=== PATIENT | male | born 1980 | race Caucasian/White ===

== ENCOUNTER 2017-03-02 05:58 | Day surgery (SDC) | payer BC ==
[2017-03-02] MEDS ORDERED: Lactated Ringers 1,000 ML IV SCH (06:30)
[2017-03-02] MEDS ORDERED: DIPRIVAN 200 MG/20 ML IV ONE (08:00)
[2017-03-02] MEDS ORDERED: Ketamine HCl 50 MG/ML IV ONE (08:00)
--- NOTE | 2017-03-02 08:35 | OP ---
SURGERY DATE/TIME: 03/02/2017 0740 PREOPERATIVE DIAGNOSIS: Epigastric abdominal pain. POSTOPERATIVE DIAGNOSIS: Moderate gastritis. PROCEDURE: EGD. SURGEON: Larry Ching M.D. ANESTHESIA: MAC by Piero Renteria CRNA. ESTIMATED BLOOD LOSS: Minimal. SPECIMENS: Cold forceps biopsy of the gastric antrum x2. DESCRIPTION OF PROCEDURE: After informed written consent was obtained, the patient was taken to the endoscopy suite. He underwent monitored anesthesia and a bite block was inserted. The endoscopic was inserted in the posterior oropharynx and under direct visualization the esophagus was traversed. The esophageal mucosa had a normal appearance free of any lesions or defects. There were no obvious signs of stricture or other abnormalities. The gastroesophageal junction likewise had a normal mucosal appearance free of any lesion or defects. Upon entering the stomach there was a normal rugated gastric mucosa free of lesions or defects. The area of the gastric antrum was inspected and noticed to have moderate gastritis-type changes with no focal ulcerations or active bleeding. Pylorus was traversed and the first and second portions of the duodenum were within normal limits. Two cold forceps biopsies were taken from the gastric antrum and sent for Helicobacter pylori testing. The remainder of the exam was within normal limits upon withdrawal. The scope was removed and the patient was transferred to the recovery room in excellent condition. I have advised him to avoid all NSAID's at this time and will start him on omeprazole 40 mg daily. Will treat for Helicobacter pylori eradication if it is present on pathology results.
[2017-03-02 09:12] VITALS: O2SAT 96
[2017-03-02 09:17] VITALS: BP 146/98; PULSE 79
== END 2017-03-02 09:00 | disposition home or self-care (01) ==
LOC: SDC 05:58
PROVIDERS: ATTEND Family Medicine
PROC: 0DB68ZX Excision of Stomach, Via Natural or Artificial Opening Endoscopic, Diagnostic (ICD-10-PCS; principal; 2017-03-02)
DX: K29.70 Gastritis, unspecified, without bleeding (principal)
CPT/HCPCS: 00740; 36415; 88305; 88312; J2704